=== PATIENT | male | born 1955 | race Hispanic/Latino ===

== ENCOUNTER → 2024-02-25 | Day surgery (SDC) | payer MEDICARE ==
[2024-02-20 15:01] LABS: BASOPHILS % 0.6 % (0.0-1.0); EOSINOPHILS # (AUTO) 0.2 (0.0-0.4); EOSINOPHILS % 3.5 % (0.0-6.0); HEMATOCRIT 34.5 % (38.2-49.6); HEMOGLOBIN 11.7 g/dL (14.0-18.0); LYMPHOCYTES # (AUTO) 1.2 (1.0-3.2); LYMPHOCYTES % 18.6 % (18.0-39.1); MEAN CORPUSCULAR HEMOGLOBIN 30.3 pg (28-32); MEAN CORPUSCULAR HGB CONC 33.9 g/dL (31-35); MEAN CORPUSCULAR VOLUME 89.4 fL (81-99); MONOCYTES # (AUTO) 0.7 (0.2-0.8); MONOCYTES % 11.1 % (4.4-11.3); NEUTROPHILS # (AUTO) 4.2 (2.1-6.9); PLATELET COUNT 206 x10e3/uL (140-360); RED BLOOD COUNT 3.86 x10e6/uL (4.3-5.7); RED CELL DISTRIBUTION WIDTH 13.6 % (11.7-14.4)
[~2024-02-25] MED LIST: CLOPIDOGREL75 MG PO; DIOVAN80 MG PO; DORZOLAMIDE HCL10 ML OU; GABAPENTIN100 MG PO; GLYCOPYRROLATE INJ 0.2 MG/ML VIAL ONE; HUMALOG SQ; HYDRALAZINE HCL50 MG PO; LABETALOL HCL 5 MG/ML 20ML VIAL ONE; LASIX20 MG PO; LATANOPROST2.5 ML OU; LEVEMIR100 UNIT/1 SQ; LIDOCAINE HCL 2% LOCAL INJ 5 ML SDV VIAL INJ ONE; MAGNESIUM100 MG PO; ONDANSETRON HCL INJ 2MG/ML 2ML 2 MG/ML VIAL ONE; PROPOFOL IV EMULSION 10 MG/ML 20 ML VIAL ONE; PROPOFOL IV EMULSION 50 ML IV ONE; ROSUVASTATIN CA20 MG PO; VENTOLIN HFA18 GM INH
[2024-02-25] MEDS: LACTATED RINGER'S 1,000 ML ONE (12:31)
[2024-02-25 15:55] VITALS: BP 176/95; PULSE 65; RESP 18; TEMP 97.2; O2SAT 99
== END | disposition home or self-care (01) ==
LOC: OR 10:40
PROVIDERS: ATTEND Internal Medicine Gastroenterology
DX: D64.89 Other specified anemias (principal); D3A.092 Benign carcinoid tumor of the stomach; D13.0 Benign neoplasm of esophagus; D12.0 Benign neoplasm of cecum; D12.2 Benign neoplasm of ascending colon; D12.3 Benign neoplasm of transverse colon; D12.4 Benign neoplasm of descending colon; K31.7 Polyp of stomach and duodenum; K29.50 Unspecified chronic gastritis without bleeding; K31.A15 Gastric intestinal metaplasia without dysplasia, involving multiple sites; K21.9 Gastro-esophageal reflux disease without esophagitis; K57.30 Diverticulosis of large intestine without perforation or abscess without bleeding; K64.8 Other hemorrhoids; Z71.3 Dietary counseling and surveillance; E11.22 Type 2 diabetes mellitus with diabetic chronic kidney disease; I12.9 Hypertensive chronic kidney disease with stage 1 through stage 4 chronic kidney disease, or unspecified chronic kidney disease; N18.9 Chronic kidney disease, unspecified; Z71.89 Other specified counseling; I25.10 Atherosclerotic heart disease of native coronary artery without angina pectoris; E78.5 Hyperlipidemia, unspecified; J44.9 Chronic obstructive pulmonary disease, unspecified; E66.01 Morbid (severe) obesity due to excess calories; G89.29 Other chronic pain; N52.9 Male erectile dysfunction, unspecified; F17.210 Nicotine dependence, cigarettes, uncomplicated; Z88.8 Allergy status to other drugs, medicaments and biological substances; Z01.810 Encounter for preprocedural cardiovascular examination; Z01.812 Encounter for preprocedural laboratory examination; Z79.02 Long term (current) use of antithrombotics/antiplatelets; Z79.4 Long term (current) use of insulin; Z79.899 Other long term (current) drug therapy; Z68.33 Body mass index [BMI] 33.0-33.9, adult; Z98.61 Coronary angioplasty status
CPT/HCPCS: 36415 ×2; 43239; 43251; 45385; 82948; 85025; 93005; J2001; J2405; J2704 ×2; J3490; J7121

== ENCOUNTER → 2024-04-17 | Outpatient (REF) | payer MEDICARE ==
[~2024-04-17] MED LIST changes: -GLYCOPYRROLATE INJ 0.2 MG/ML VIAL ONE; -LABETALOL HCL 5 MG/ML 20ML VIAL ONE; -LIDOCAINE HCL 2% LOCAL INJ 5 ML SDV VIAL INJ ONE; -ONDANSETRON HCL INJ 2MG/ML 2ML 2 MG/ML VIAL ONE; -PROPOFOL IV EMULSION 10 MG/ML 20 ML VIAL ONE; -PROPOFOL IV EMULSION 50 ML IV ONE
[2024-04-17 09:48] LABS: CREATININE, SERUM 2.85 mg/dL (0.72-1.25)
== END ==
LOC: CT 08:46
PROVIDERS: ATTEND Nurse Practitioner
DX: D3A.8 Other benign neuroendocrine tumors (principal)
CPT/HCPCS: 36415; 74176; 82565; 84520

== ENCOUNTER → 2024-11-28 | Outpatient (REF) | payer MEDICARE | LOC: RAD 14:58 | PROVIDERS: ATTEND Internal Medicine | DX: M54.50 Low back pain, unspecified (principal) | CPT/HCPCS: 72100 ==